=== PATIENT | female | born 1940 | race Caucasian/White ===

== ENCOUNTER 2019-07-11 18:56 | Inpatient (IN) ==
[2019-07-11] MEDS ORDERED: methylPREDNISolone 125 MG/2 ML VIAL IVP ONE (19:40)
[2019-07-11] MEDS ORDERED: Ipratropium/Albuterol Neb 3 ML IH ONE (19:40)
[2019-07-11 20:15] LABS: Basophils # 0.1 K/mcL (0.0-0.2); Basophils % 0.6 %; Eosinophils # 0.2 K/mcL (0.0-0.6); Eosinophils % 1.7 %; Hematocrit 28.8 % (35.3-44.9); Immature Granulocytes % 0.5 % (0-4); Lymphocytes # 0.9 K/mcL (0.6-4.6); Lymphocytes % 10.7 %; Mean Corpuscular HGB Conc 31.3 g/dL (31.6-35.5); Mean Corpuscular Hemoglobin 29.3 pg (28.0-33.3); Mean Corpuscular Volume 93.8 fL (83.0-100.0); Mean Platelet Volume 9.3 fL (9.4-12.4); Monocytes # 0.7 K/mcL (0.0-1.3); Monocytes % 7.9 %; Neutrophils # 6.8 K/mcL (1.6-8.9); Platelet Count 445 K/mcL (140-400); Red Blood Count 3.07 M/mcL (3.82-4.97); Red Cell Distribution Width 16.5 % (11.5-14.5); Segmented Neutrophils % 78.6 %; White Blood Count 8.6 K/mcL (4.3-11.1)
[2019-07-11 20:37] LABS: BUN/Creatinine Ratio 16 (6-26); Blood Urea Nitrogen 18 mg/dL (8-23); Calcium 9.4 mg/dL (8.6-10.3); Carbon Dioxide 36 mEq/L (23-29); Chloride 92 mEq/L (98-107); Glucose 92 mg/dL (70-105); Osmolality,Calculated 284 (280-300); Potassium 3.2 mEq/L (3.5-5.1); Sodium 136 mEq/L (136-145); Troponin I < 0.03 ng/mL (< 0.04); eGFR For African Americans 58 (> 60); eGFR For Non-African Americans 48 (> 60)
[2019-07-11 20:54] LABS: Bilirubin,Urine Negative (Negative); Blood,Urine Negative (Negative); Clarity,Urine Clear (Clear); Color,Urine Yellow (Yellow); Glucose,Urine (UA) Normal (Normal); Ketones,Urine Negative (Negative); Leukocyte Esterase,Urine Small (Negative); Nitrite,Urine Negative (Negative); Protein,Urine Negative (Neg-Trace); Urobilinogen,Urine Normal (Normal)
[2019-07-11] MEDS ORDERED: Azithromycin 500 MG in 0.9 % Sodium Chloride 250 ML IVPB ONE ×2 (21:03→22:15)
[2019-07-11 21:05] LABS: Hyaline Casts,Urine Few per lpf (None-Few); Mucus,Urine Few (Few); Squamous Epithelial Cell,Urine Many per lpf (None-Few)
[2019-07-11 21:06] LABS: Bacteria,Urine Moderate per hpf (None-Few); RBC,Urine 0-3 per hpf (0-3)
[2019-07-11] MEDS ORDERED: Potassium Chloride Elixir 20 MEQ/15 ML UDC PO ONE (21:14)
[2019-07-11] MEDS ORDERED: Naloxone 0.4 MG/ML INJ IVP PRN (21:52)
[2019-07-11] MEDS: 0.9 % Sodium Chloride 1,000 ML IVC SCH (22:52)
[2019-07-12] MEDS: Ipratropium/Albuterol Neb 3 ML IH PRN ×2 (00:35→08:28)
[2019-07-12] MEDS ORDERED: ALPRAZolam 0.5 MG TABLET PO PRN (00:40)
[2019-07-12] MEDS: ALPRAZolam 0.5 MG TABLET PO SCH ×2 (08:05→21:16)
[2019-07-12] MEDS: 0.9 % Sodium Chloride 1,000 ML IVC SCH (08:10)
[2019-07-12] MEDS: cefTRIAXone 1,000 MG in 0.9 % Sodium Chloride Mini Bag 100 ML IVPB SCH (08:12)
[2019-07-12] MEDS: Budesonide/Formoterol 160/4.5 1 PUFF INH IH SCH ×2 (08:28→22:55)
[2019-07-12 08:50] LABS: Hematocrit 25.3 % (35.3-44.9); Hemoglobin 7.8 g/dL (11.5-15.4); Mean Corpuscular HGB Conc 30.8 g/dL (31.6-35.5); Mean Corpuscular Hemoglobin 29.1 pg (28.0-33.3); Mean Corpuscular Volume 94.4 fL (83.0-100.0); Mean Platelet Volume 9.4 fL (9.4-12.4); Platelet Count 367 K/mcL (140-400); Red Blood Count 2.68 M/mcL (3.82-4.97); Red Cell Distribution Width 16.4 % (11.5-14.5); White Blood Count 4.2 K/mcL (4.3-11.1)
[2019-07-12] MEDS: Nicotine 21 MG PATCH.TD24 TD SCH (10:17)
[2019-07-12 10:59] LABS: Calcium 8.2 mg/dL (8.6-10.3); Potassium 3.7 mEq/L (3.5-5.1)
[2019-07-12] MEDS: 0.45 % Sodium Chloride w/KCl 20 MEQ/1,000 ML MLS IVC SCH (13:43)
[2019-07-12] MEDS: Albuterol 2.5 MG/3 ML NEBULIZER IH PRN ×2 (19:44→22:55)
[2019-07-12] MEDS: Lactobacillus 1 EACH CAP.SPRINK PO SCH (21:16)
[2019-07-12] MEDS: Azithromycin 500 MG in 0.9 % Sodium Chloride 250 ML IVPB SCH (22:51)
[2019-07-13] MEDS: 0.45 % Sodium Chloride w/KCl 20 MEQ/1,000 ML MLS IVC SCH ×2 (02:55→14:23)
[2019-07-13] MEDS: ALPRAZolam 0.5 MG TABLET PO SCH ×2 (05:57→20:59)
[2019-07-13 07:01] LABS: Basophils % 0.4 %; Eosinophils # 0.1 K/mcL (0.0-0.6); Eosinophils % 1.1 %; Hematocrit 23.9 % (35.3-44.9); Hemoglobin 7.3 g/dL (11.5-15.4); Immature Granulocytes % 0.6 % (0-4); Lymphocytes # 0.9 K/mcL (0.6-4.6); Lymphocytes % 16.9 %; Mean Corpuscular HGB Conc 30.5 g/dL (31.6-35.5); Mean Corpuscular Hemoglobin 29.7 pg (28.0-33.3); Mean Corpuscular Volume 97.2 fL (83.0-100.0); Mean Platelet Volume 9.3 fL (9.4-12.4); Monocytes # 0.4 K/mcL (0.0-1.3); Monocytes % 8.1 %; Neutrophils # 3.9 K/mcL (1.6-8.9); Platelet Count 350 K/mcL (140-400); Red Blood Count 2.46 M/mcL (3.82-4.97); Red Cell Distribution Width 16.6 % (11.5-14.5); Segmented Neutrophils % 72.9 %; White Blood Count 5.3 K/mcL (4.3-11.1)
[2019-07-13] MEDS: Lactobacillus 1 EACH CAP.SPRINK PO SCH ×2 (08:53→20:59)
[2019-07-13] MEDS: Nicotine 21 MG PATCH.TD24 TD SCH (08:53)
[2019-07-13 08:54] LABS: % Iron Saturation 10 % (15-50); Iron 25 mcg/dL (50-170); Transferrin 180 mg/dL (203-362)
[2019-07-13] MEDS: cefTRIAXone 1,000 MG in 0.9 % Sodium Chloride Mini Bag 100 ML IVPB SCH (08:54)
[2019-07-13 09:18] LABS: Ferritin 39 ng/mL (10-120)
[2019-07-13 10:21] LABS: Folate 6.4 ng/mL (3.0-16.0)
[2019-07-13 10:29] LABS: Vitamin B12 293 pg/mL (250-1100); Vitamin D 25 Hydroxy < 5 ng/mL (30-80)
[2019-07-13] MEDS: Magnesium Oxide 400 MG TABLET PO SCH ×2 (10:34→20:59)
[2019-07-13] MEDS: Budesonide/Formoterol 160/4.5 1 PUFF INH IH SCH ×2 (10:39→22:45)
[2019-07-13] MEDS: Tiotropium 18 MCG inhalation IH SCH (10:40)
[2019-07-13] MEDS: Cholecalciferol (D-3) 1,000 UNIT (25MCG) TABLET PO SCH (14:22)
[2019-07-13] MEDS ORDERED: Ondansetron ODT 4 MG TAB.RAPDIS SL PRN (16:46)
[2019-07-13] MEDS: Albuterol 2.5 MG/3 ML NEBULIZER IH PRN ×2 (18:44→22:45)
[2019-07-13] MEDS: Azithromycin 500 MG in 0.9 % Sodium Chloride 250 ML IVPB SCH (21:00)
[2019-07-14] MEDS: Acetaminophen 325 MG TABLET PO PRN ×3 (00:45→20:35)
[2019-07-14] MEDS: 0.45 % Sodium Chloride w/KCl 20 MEQ/1,000 ML MLS IVC SCH (04:16)
[2019-07-14] MEDS: Ascorbic Acid 500 MG TABLET PO SCH (05:38)
[2019-07-14] MEDS: *HR* Enoxaparin 30 MG/0.3 ML SYRINGE SQ SCH (05:39)
[2019-07-14 05:57] LABS: Basophils % 0.5 %; Eosinophils # 0.2 K/mcL (0.0-0.6); Hematocrit 25.2 % (35.3-44.9); Hemoglobin 7.5 g/dL (11.5-15.4); Immature Granulocytes % 0.5 % (0-4); Lymphocytes # 1.1 K/mcL (0.6-4.6); Lymphocytes % 16.8 %; Mean Corpuscular HGB Conc 29.8 g/dL (31.6-35.5); Mean Corpuscular Hemoglobin 29.2 pg (28.0-33.3); Mean Corpuscular Volume 98.1 fL (83.0-100.0); Mean Platelet Volume 9.4 fL (9.4-12.4); Monocytes # 0.5 K/mcL (0.0-1.3); Monocytes % 7.9 %; Neutrophils # 4.6 K/mcL (1.6-8.9); Platelet Count 347 K/mcL (140-400); Red Blood Count 2.57 M/mcL (3.82-4.97); Red Cell Distribution Width 16.4 % (11.5-14.5); Segmented Neutrophils % 71.3 %; White Blood Count 6.4 K/mcL (4.3-11.1)
[2019-07-14 06:27] LABS: Alanine Aminotransferase 6 Units/L (7-52); Albumin 2.4 g/dL (3.5-5.7); Alkaline Phosphatase 59 Units/L (34-104); Aspartate Amino Transferase 11 Units/L (13-39); BUN/Creatinine Ratio 11 (6-26); Bilirubin,Total 0.2 mg/dL (0.3-1.0); Blood Urea Nitrogen 9 mg/dL (8-23); Calcium 7.7 mg/dL (8.6-10.3); Carbon Dioxide 29 mEq/L (23-29); Chloride 106 mEq/L (98-107); Chol/HDL Ratio 2.4 (0-4.9); Cholesterol 162 mg/dL (< 200); Globulin 2.4 g/dL (2.4-3.5); Glucose 92 mg/dL (70-105); HDL Cholesterol 68 mg/dL (40-59); LDL Cholesterol,Calculated 60 mg/dL (0-99); Osmolality,Calculated 286 (280-300); Potassium 4.1 mEq/L (3.5-5.1); Sodium 139 mEq/L (136-145); Total Protein 4.8 g/dL (6.4-8.9); Triglycerides 172 mg/dL (< 150); eGFR For African Americans > 60 (> 60); eGFR For Non-African Americans > 60 (> 60)
[2019-07-14] MEDS: Nicotine 21 MG PATCH.TD24 TD SCH (09:13)
[2019-07-14] MEDS: Cholecalciferol (D-3) 1,000 UNIT (25MCG) TABLET PO SCH (09:16)
[2019-07-14] MEDS: Lactobacillus 1 EACH CAP.SPRINK PO SCH ×2 (09:16→20:33)
[2019-07-14] MEDS: cefTRIAXone 1,000 MG in Water for inj. (sterile) 10 ML IVPB SCH (09:16)
[2019-07-14] MEDS: Magnesium Oxide 400 MG TABLET PO SCH ×2 (09:16→20:33)
[2019-07-14] MEDS: ALPRAZolam 0.5 MG TABLET PO SCH ×2 (09:25→20:34)
[2019-07-14] MEDS: Budesonide/Formoterol 160/4.5 1 PUFF INH IH SCH ×2 (09:43→22:58)
[2019-07-14] MEDS: Albuterol 2.5 MG/3 ML NEBULIZER IH PRN ×3 (09:43→22:58)
[2019-07-14] MEDS: Tiotropium 18 MCG inhalation IH SCH (09:48)
[2019-07-15] MEDS: Azithromycin 500 MG in 0.9 % Sodium Chloride 250 ML IVPB SCH (00:01)
[2019-07-15] MEDS: Acetaminophen 325 MG TABLET PO PRN (02:19)
[2019-07-15] MEDS: *HR* Enoxaparin 30 MG/0.3 ML SYRINGE SQ SCH ×2 (06:35→06:37)
[2019-07-15] MEDS: Ascorbic Acid 500 MG TABLET PO SCH (06:35)
[2019-07-15 07:12] LABS: Basophils % 0.4 %; Eosinophils # 0.2 K/mcL (0.0-0.6); Eosinophils % 4.3 %; Hematocrit 25.9 % (35.3-44.9); Hemoglobin 7.8 g/dL (11.5-15.4); Immature Granulocytes % 0.4 % (0-4); Lymphocytes # 1.2 K/mcL (0.6-4.6); Lymphocytes % 22.5 %; Mean Corpuscular HGB Conc 30.1 g/dL (31.6-35.5); Mean Corpuscular Hemoglobin 29.2 pg (28.0-33.3); Mean Platelet Volume 9.3 fL (9.4-12.4); Monocytes # 0.4 K/mcL (0.0-1.3); Monocytes % 7.6 %; Neutrophils # 3.4 K/mcL (1.6-8.9); Platelet Count 335 K/mcL (140-400); Red Blood Count 2.67 M/mcL (3.82-4.97); Segmented Neutrophils % 64.8 %; White Blood Count 5.3 K/mcL (4.3-11.1)
[2019-07-15 09:25] LABS: BUN/Creatinine Ratio 9 (6-26); Blood Urea Nitrogen 8 mg/dL (8-23); Calcium 8.1 mg/dL (8.6-10.3); Carbon Dioxide 29 mEq/L (23-29); Chloride 106 mEq/L (98-107); Glucose 89 mg/dL (70-105); Magnesium 1.4 mg/dL (1.6-2.6); Osmolality,Calculated 288 (280-300); Potassium 4.2 mEq/L (3.5-5.1); Sodium 140 mEq/L (136-145); eGFR For African Americans > 60 (> 60); eGFR For Non-African Americans > 60 (> 60)
[2019-07-15] MEDS: Lactobacillus 1 EACH CAP.SPRINK PO SCH (09:46)
[2019-07-15] MEDS: Magnesium Oxide 400 MG TABLET PO SCH (09:46)
[2019-07-15] MEDS: Cholecalciferol (D-3) 1,000 UNIT (25MCG) TABLET PO SCH (09:46)
[2019-07-15] MEDS: Nicotine 21 MG PATCH.TD24 TD SCH (09:46)
[2019-07-15] MEDS: cefTRIAXone 1,000 MG in Water for inj. (sterile) 10 ML IVPB SCH (09:47)
[2019-07-15] MEDS: ALPRAZolam 0.5 MG TABLET PO SCH (09:48)
[2019-07-15] MEDS: Budesonide/Formoterol 160/4.5 1 PUFF INH IH SCH (10:52)
[2019-07-15] MEDS: Tiotropium 18 MCG inhalation IH SCH (10:52)
[2019-07-15 15:06] VITALS: BP 181/93
[2019-07-15] MEDS: Albuterol 2.5 MG/3 ML NEBULIZER IH PRN (15:14)
[2019-07-16] MEDS ORDERED: *HR* Enoxaparin 40 MG/0.4 ML SYRINGE SQ SCH (06:00)
== END 2019-07-15 19:47 | disposition home health service (06) | DRG 194 ==
LOC: INPPIK 18:56 → EMEROOPIK 18:56 → INPPIK 21:47
PROVIDERS: ADMIT Internal Medicine; ATTEND Internal Medicine